=== PATIENT | male | born 1940 | race Caucasian/White ===

== ENCOUNTER 2018-05-12 12:42 | Emergency (ER) | payer MEDICARE ==
[2018-05-12 13:25] LABS: BASO % 0.1 % (0.0-1.0); EOS % 0.2 % (0.0-3.0); HEMOGLOBIN 13.4 g/dl (13.5-17.5); IMMATURE GRANULOCYTE % 0.4 % (0-3.0); LYMPH # 0.8 10^3/uL (1.5-4.5); LYMPH % 9.7 % (24.0-44.0); MEAN CORPUSCULAR HEMOGLOBIN 30.2 pg (27.0-33.0); MEAN CORPUSCULAR HGB CONC 35.3 g/dl (32.0-36.5); MEAN CORPUSCULAR VOLUME 85.8 fl (80.0-96.0); MONO # 0.4 10^3/uL (0.0-0.8); MONO % 5.3 % (0.0-5.0); NEUTROPHILS # 6.8 10^3/uL (1.8-7.7); NEUTROPHILS % 84.3 % (36.0-66.0); PLATELET COUNT, AUTOMATED 185 10^3/uL (150-450); RED BLOOD COUNT 4.43 10^6/uL (4.30-6.10); RED CELL DISTRIBUTION WIDTH 13.3 % (11.5-14.5); WHITE BLOOD COUNT 8.1 10^3/uL (4.0-10.0)
[2018-05-12 13:51] LABS: ALBUMIN/GLOBULIN RATIO 1.38 (1.00-1.93); ALKALINE PHOSPHATASE 31 U/L (45-117); ALT/SGPT 17 U/L (12-78); ANION GAP 10 MEQ/L (8-16); AST/SGOT 13 U/L (7-37); BILIRUBIN,DIRECT 0.3 MG/DL (0.0-0.2); BLOOD UREA NITROGEN 20 MG/DL (7-18); CALCIUM LEVEL 8.6 MG/DL (8.8-10.2); CARBON DIOXIDE LEVEL 24 MEQ/L (21-32); CHLORIDE LEVEL 107 MEQ/L (98-107); CREATININE FOR GFR 1.03 MG/DL (0.70-1.30); GLOMERULAR FILTRATION RATE > 60.0 (>42); GLUCOSE, FASTING 241 MG/DL (70-100); LIPASE 113 U/L (73-393); POTASSIUM SERUM 4.1 MEQ/L (3.5-5.1); SODIUM LEVEL 141 MEQ/L (136-145); TOTAL PROTEIN 6.9 GM/DL (6.4-8.2)
[2018-05-12] MEDS: diazePAM 5 MG TAB PO (15:08)
[2018-05-12 16:18] LABS: KETONE, URINE AUTO RFX NEGATIVE (NEGATIVE); LEUKOCYTE ESTERASE UR AUTO RFX NEGATIVE (NEGATIVE); NITRITE, URINE AUTO RFX NEGATIVE (NEGATIVE); RBC, URINE AUTO RFX 70 /HPF (0-3); SQUAM EPITHELIAL CELL UR AURFX 0 /HPF (0-6); WBC, URINE AUTO RFX 2 /HPF (0-3)
[2018-05-12] MEDS ORDERED: CEPHALEXIN 500 MG CAP PO (17:00)
== END 2018-05-12 17:03 | disposition home or self-care (01) ==
LOC: M ED 12:42
DX: N13.9 Obstructive and reflux uropathy, unspecified (principal); G47.33 Obstructive sleep apnea (adult) (pediatric); I48.91 Unspecified atrial fibrillation; E11.9 Type 2 diabetes mellitus without complications; I10 Essential (primary) hypertension; N40.0 Benign prostatic hyperplasia without lower urinary tract symptoms; F33.9 Major depressive disorder, recurrent, unspecified; F41.9 Anxiety disorder, unspecified; H40.9 Unspecified glaucoma; Z95.0 Presence of cardiac pacemaker; Z90.49 Acquired absence of other specified parts of digestive tract; Z87.891 Personal history of nicotine dependence; Z88.8 Allergy status to other drugs, medicaments and biological substances; Z79.01 Long term (current) use of anticoagulants; Z79.899 Other long term (current) drug therapy; Z79.84 Long term (current) use of oral hypoglycemic drugs
CPT/HCPCS: 83690

== ENCOUNTER → 2018-05-28 | Outpatient (REF) | payer MEDICARE ==
[2018-05-28 14:14] LABS: APPEARANCE, URINE CLEAR (CLEAR); BACTERIA, URINE AUTO 1+ (NEGATIVE); BILIRUBIN, URINE AUTO NEGATIVE (NEGATIVE); BLOOD, URINE BLOOD 1+ (NEGATIVE); COLOR, URINE YELLOW (YELLOW); GLUCOSE, URINE (UA) AUTO 1+ mg/dL (NEGATIVE); KETONE, URINE AUTO NEGATIVE (NEGATIVE); LEUKOCYTE ESTERASE, URINE AUTO TRACE (NEGATIVE); MUCUS, URINE SMALL (NEGATIVE); NITRITE, URINE AUTO NEGATIVE (NEGATIVE); PROTEIN, URINE AUTO NEGATIVE (NEGATIVE); RBC, URINE AUTO 1 /HPF (0-3); SPECIFIC GRAVITY URINE AUTO 1.005 (1.002-1.035); SQUAMOUS EPITHELIAL CELL UR AU 0 /HPF (0-6); UROBILINOGEN, URINE AUTO 0.2 mg/dL (0.0-2.0); WBC, URINE AUTO 2 /HPF (0-3)
== END ==
LOC: M SMT 13:31
DX: N40.0 Benign prostatic hyperplasia without lower urinary tract symptoms (principal)
CPT/HCPCS: 81001

== ENCOUNTER 2023-10-24 10:46 | Day surgery (SDC) | payer MEDICAID, MEDICARE ==
[~2023-10-24] VITALS: Ht 175.3 cm; Wt 77.6 kg
[~2023-10-24 10:46] MED LIST: ACTO15TA; AMILORIDE; CARV12.5 PO; COMBIGAN; CORE12.5; COUM1TAB18; CYAN-11 PO; DIAZ5TAB; DIAZ5TAB PO; FENO160T10 PO; FINA5TAB2 PO; FLOM0.4C39 PO; FOLI1TAB11 PO; GLIM1TAB4 PO; GLUC850T; GLYB1TAB29; GLYB5TAB6 PO; HYDR-727; KEFL500C17 PO; LANTINJ4 SC; LATA0.0013 OP; LOSA100T46 PO; LOSA50TA28 PO; LUMIGAN; MAGN400T2 PO; METF-838 PO; MYCARDIS; POTA1TAB21 PO; POTA1TAB22 PO; PROBCAP14 PO; PROZ10CA; TIMO5DRO4 OU; TORS20TA2 PO; TRIC145T19; VITA100093 PO; XALA0.007 OU; [UNRECOGNIZED DRUG - OTHER]
[2023-10-24] MEDS ORDERED: GLUCAGON INJ 1MG VIAL SC PRN (10:55)
[2023-10-24] MEDS ORDERED: LR 1,000 ML IV SCH (10:55)
[2023-10-24] MEDS ORDERED: INSULIN LISPRO (NovoLOG) PER UNIT SC PRN (10:55)
[2023-10-24] MEDS ORDERED: DEXTROSE 50% 50ML SYRINGE IV PRN (10:55)
[2023-10-24] MEDS ORDERED: GLUCOSE 4GM CHEW TABLET PO PRN (10:55)
[2023-10-24] MEDS ORDERED: LIDOCAINE 2% 100MG/5ML SDV (FOR ANES.) As Ordered ONE (11:48)
[2023-10-24] MEDS ORDERED: propofoL 200 MG/20 ML VIAL As Ordered ONE (11:48)
[2023-10-24] MEDS ORDERED: fentaNYL 100 MCG/2 ML INJECTION As Ordered ONE (11:48)
[2023-10-24] MEDS: ceFAZolin SOD 2 GM in IV 1 EA IV ONE (12:12)
[2023-10-24] MEDS ORDERED: ACETAMINOPHEN 1000MG 100ML IV BAG As Ordered ONE (12:17)
[2023-10-24] MEDS: ceFAZolin 1GM VIAL As Ordered ONE (12:29)
[2023-10-24] MEDS: LIDOCAINE 1% SDV 30ML VIAL As Ordered ONE (12:38)
[2023-10-24 13:20] VITALS: BP 152/78; TEMP 97.6; O2SAT 97
== END 2023-10-24 13:30 | disposition home or self-care (01) ==
LOC: M SDC 10:46
PROVIDERS: ATTEND Internal Medicine Cardiovascular Disease
DX: Z45.010 Encounter for checking and testing of cardiac pacemaker pulse generator [battery] (principal); T82.111A Breakdown (mechanical) of cardiac pulse generator (battery), initial encounter; Y71.2 Prosthetic and other implants, materials and accessory cardiovascular devices associated with adverse incidents; I44.2 Atrioventricular block, complete; I48.21 Permanent atrial fibrillation; E10.9 Type 1 diabetes mellitus without complications; I50.9 Heart failure, unspecified; I11.0 Hypertensive heart disease with heart failure; I08.9 Rheumatic multiple valve disease, unspecified; G47.30 Sleep apnea, unspecified; C25.9 Malignant neoplasm of pancreas, unspecified; Z88.8 Allergy status to other drugs, medicaments and biological substances; Z79.899 Other long term (current) drug therapy
CPT/HCPCS: 33227; C1786; J0131; J0690; J3010